=== PATIENT | male | born 1990 | race African-American/Black ===

== ENCOUNTER → 2019-01-31 | Emergency (ER) | payer OTHER ==
[~2019-01-31] VITALS: Ht 165.1 cm; Wt 57.2 kg
[~2019-01-31] MED LIST: ACETAMINOPHEN 325 MG TABLET ONE; METOCLOPRAMIDE HCL 10 MG TABLET ONE; diphenhydrAMINE HCL 25 MG CAPSULE ONE
--- NOTE | 2019-01-31 04:22 | NUR ---
PT BIBSELF C/O HEADACHE [id number], WORSE TODAY. PT DESCRIBES "TINGLING BRAIN". +NAUSEA, +NECK/BACK PAIN, -BLURRY VISION. PT AOX4. NAD NOTED. RESP EVEN AND UNLABORED. PT ON MONITOR IN BED 10. WILL CONTINUE TO MONITOR.
--- NOTE | 2019-01-31 04:50 | NUR ---
AT BEDSIDE FOR EVAL
--- NOTE | 2019-01-31 05:15 | NUR ---
PT TAKEN TO RADIOLOGY VIA PRITESH
[2019-01-31] MEDS: ACETAMINOPHEN 325 MG TABLET PO ONE (05:38)
[2019-01-31] MEDS: METOCLOPRAMIDE HCL 10 MG TABLET PO ONE (05:38)
[2019-01-31] MEDS: diphenhydrAMINE HCL 25 MG CAPSULE PO ONE (05:38)
[2019-01-31 05:39] VITALS: BP 147/96
== END | disposition home or self-care (01) ==
LOC: ER 04:10
DX: R51 Headache (principal); F17.200 Nicotine dependence, unspecified, uncomplicated
CPT/HCPCS: 70450; 99284; J8597; Q0163